=== PATIENT | female | born 1990 | race Caucasian/White ===

== ENCOUNTER → 2017-02-13 | Outpatient (CLI) | payer BC, OTHER ==
[~2017-02-13] MED LIST: ACET50TA PO; ANUS2.5C2 PR; DOCU10ELUD PO; IBUP-1114 PO; IBUP80TA PO; MOM30SS PO; PERC5TAB12 PO; PRENTAB66 PO
[2017-02-13 18:50] LABS: THYROXINE (T4) 7.3 UG/DL (4.5-12.0)
== END ==
LOC: M SMT 13:56
PROVIDERS: ATTEND Advanced Practice Midwife
DX: F32.89 Other specified depressive episodes (principal)

== ENCOUNTER → 2017-10-04 | Outpatient (CLI) | payer OTHER | LOC: M OUTALCOH 07:44 | DX: F10.10 Alcohol abuse, uncomplicated (principal) ==

== ENCOUNTER → 2017-11-27 | Outpatient (CLI) | payer BC, OTHER | LOC: M RAD 13:56 | DX: I87.2 Venous insufficiency (chronic) (peripheral) (principal); I83.811 Varicose veins of right lower extremity with pain ==

== ENCOUNTER 2018-02-05 05:49 | Day surgery (SDC) | payer BC, OTHER ==
[2018-02-05] MEDS ORDERED: LR 1,000 ML IV ×2 (06:00→08:30)
[2018-02-05 06:58] LABS: CONTROL LINE UCG INT CTR LINE PRESENT; URINE PREG TEST NEGATIVE (NEGATIVE)
[2018-02-05] MEDS ORDERED: ONDANSETRON 4MG/2ML VIAL (J2405) As Ordered (07:45)
[2018-02-05] MEDS ORDERED: fentaNYL 100 MCG/2 ML INJECTION (J3010) As Ordered (07:45)
[2018-02-05] MEDS ORDERED: LIDOCAINE 2% INJ 100 MG/5 ML SDV (FOR ANES.) As Ordered (07:45)
[2018-02-05] MEDS ORDERED: PROPOFOL 200 MG/20 ML VIAL As Ordered (07:45)
[2018-02-05] MEDS ORDERED: MIDAZOLAM INJ 2 MG/2 ML VIAL (J2250) As Ordered (07:45)
[2018-02-05] MEDS ORDERED: dexameTHASONE 4 MG/ML 1ML VIAL (J1100) As Ordered (07:45)
[2018-02-05] MEDS: LIDOCAINE W/EPINEPHRINE 1% 20ML VIAL As Ordered (07:48)
[2018-02-05] MEDS ORDERED: ONDANSETRON 4MG/2ML VIAL (J2405) IV (08:30)
[2018-02-05] MEDS ORDERED: PERCOCET 5MG/325MG TAB PO (08:30)
[2018-02-05] MEDS ORDERED: MORPHINE 10 MG/ML 1ML VIAL (J2270) IV (08:30)
[2018-02-05] MEDS: IBUPROFEN 600 MG TAB PO (08:30)
[2018-02-05] MEDS ORDERED: fentaNYL 100 MCG/2 ML INJECTION (J3010) IV (08:30)
[2018-02-05] MEDS ORDERED: IBUPROFEN 600 MG TAB As Ordered (08:41)
== END 2018-02-05 08:45 | disposition home or self-care (01) ==
LOC: M SDC 05:49
DX: I83.811 Varicose veins of right lower extremity with pain (principal); I87.2 Venous insufficiency (chronic) (peripheral)
CPT/HCPCS: 36475

== ENCOUNTER → 2018-02-20 | Outpatient (CLI) | payer BC, OTHER | LOC: M RAD 11:43 | DX: I82.811 Embolism and thrombosis of superficial veins of right lower extremity (principal) | CPT/HCPCS: 93971 ==

== ENCOUNTER → 2018-06-10 | Outpatient (REF) | payer OTHER ==
[2018-06-10 14:44] LABS: CHLAMYDIA DNA AMPLIFICATION NEGATIVE (NEGATIVE); GC DNA AMPLIFICATION NEGATIVE (NEGATIVE)
== END ==
LOC: M SFHCWAGY 12:57
DX: Z11.3 Encounter for screening for infections with a predominantly sexual mode of transmission (principal); R30.0 Dysuria
CPT/HCPCS: 87086

== ENCOUNTER → 2018-06-10 | Outpatient (REF) | payer OTHER | LOC: M SFHCWAGY 10:34 | DX: Z12.4 Encounter for screening for malignant neoplasm of cervix (principal) ==

== ENCOUNTER → 2018-11-05 | Outpatient (REF) | payer OTHER ==
[~2018-11-05] MED LIST changes: -ACET50TA PO; -DOCU10ELUD PO; +DOCU5LIQ PO; +MAPA500T17 PO; +MAPA500T2 PO
[2018-11-05 17:17] LABS: MONO SCRN NEGATIVE (NEGATIVE)
[2018-11-05 17:26] LABS: BASO % 0.7 % (0.0-1.0); EOS # 0.1 10^3/uL (0.0-0.50); EOS % 1.6 % (0.0-3.0); HEMATOCRIT 40.1 % (36.0-47.0); HEMOGLOBIN 13.5 g/dl (12.0-15.5); LYMPH # 1.4 10^3/uL (1.5-6.5); LYMPH % 31.7 % (24.0-44.0); MEAN CORPUSCULAR HEMOGLOBIN 31.6 pg (27.0-33.0); MEAN CORPUSCULAR HGB CONC 33.7 g/dl (32.0-36.5); MEAN CORPUSCULAR VOLUME 93.9 fl (80.0-96.0); MONO # 0.3 10^3/uL (0.0-0.8); MONO % 6.3 % (0.0-5.0); NEUTROPHILS # 2.5 10^3/uL (1.8-7.7); NEUTROPHILS % 59.2 % (36.0-66.0); PLATELET COUNT, AUTOMATED 164 10^3/uL (150-450); RED BLOOD COUNT 4.27 10^6/uL (4.00-5.40); WHITE BLOOD COUNT 4.3 10^3/uL (4.0-10.0)
[2018-11-05 17:35] LABS: ALT/SGPT 20 U/L (12-78); BILIRUBIN,TOTAL 0.6 MG/DL (0.2-1.0); BLOOD UREA NITROGEN 15 MG/DL (7-18); CALCIUM LEVEL 8.8 MG/DL (8.5-10.1); CARBON DIOXIDE LEVEL 28 MEQ/L (21-32); CHLORIDE LEVEL 106 MEQ/L (98-107); CREATININE FOR GFR 0.82 MG/DL (0.55-1.30); FREE THYROXINE INDEX 2.4 % (1.3-4.8); GLOMERULAR FILTRATION RATE > 60.0 (>60); GLUCOSE, FASTING 87 MG/DL (70-100); POTASSIUM SERUM 4.3 MEQ/L (3.5-5.1); SODIUM LEVEL 139 MEQ/L (136-145); T UPTAKE 32 % (30-39); THYROXINE (T4) 7.5 UG/DL (4.5-12.0); TOTAL 25(OH) VITAMIN D 75.6 NG/ML (30.0-100.0); TOTAL PROTEIN 7.5 GM/DL (6.4-8.2); VITAMIN B12 LEVEL 402 PG/ML (247-911)
== END ==
LOC: M SFHCCLAY 10:39
PROVIDERS: ATTEND Nurse Practitioner Family
DX: R53.83 Other fatigue (principal)

== ENCOUNTER → 2019-08-07 | Outpatient (REF) | payer OTHER | LOC: M SFHCCLAY 15:58 | PROVIDERS: ATTEND Nurse Practitioner Family | DX: R68.83 Chills (without fever) (principal) ==

== ENCOUNTER → 2020-08-24 | Outpatient (REF) | payer OTHER ==
[2020-08-24 15:59] LABS: BASO % 0.3 % (0.0-1.0); EOS % 0.2 % (0.0-3.0); HEMATOCRIT 36.9 % (36.0-47.0); HEMOGLOBIN 12.6 g/dl (12.0-15.5); LYMPH # 0.6 10^3/uL (1.5-5.0); LYMPH % 9.9 % (24.0-44.0); MEAN CORPUSCULAR HEMOGLOBIN 32.1 pg (27.0-33.0); MEAN CORPUSCULAR HGB CONC 34.1 g/dl (32.0-36.5); MEAN CORPUSCULAR VOLUME 94.1 fl (80.0-96.0); MONO # 0.2 10^3/uL (0.0-0.8); MONO % 3.3 % (2.0-8.0); NEUTROPHILS # 5.3 10^3/uL (1.5-8.5); NEUTROPHILS % 85.6 % (36.0-66.0); PLATELET COUNT, AUTOMATED 208 10^3/uL (150-450); RED BLOOD COUNT 3.92 10^6/uL (4.00-5.40); WHITE BLOOD COUNT 6.1 10^3/uL (4.0-10.0)
[2020-08-24 16:35] LABS: FREE T4 1.5 NG/DL (0.76-1.46); THYROID STIMULATING HORMONE 0.688 uIU/ML (0.358-3.740)
== END ==
LOC: M PLALAB 11:45
PROVIDERS: ATTEND Nurse Practitioner Women's Health
DX: L65.9 Nonscarring hair loss, unspecified (principal); N93.9 Abnormal uterine and vaginal bleeding, unspecified; N92.0 Excessive and frequent menstruation with regular cycle

== ENCOUNTER → 2021-01-06 | Outpatient (REF) | payer OTHER ==
[2021-01-06 21:39] LABS: GC DNA AMPLIFICATION NEGATIVE (NEGATIVE)
== END ==
LOC: M SFHCWAGY 17:21
PROVIDERS: ATTEND Nurse Practitioner Women's Health
DX: Z11.3 Encounter for screening for infections with a predominantly sexual mode of transmission (principal)

== ENCOUNTER → 2021-04-22 | Outpatient (REF) | payer OTHER ==
[2021-04-22 19:14] LABS: GC DNA AMPLIFICATION NEGATIVE (NEGATIVE)
== END ==
LOC: M SFHCWAGY 16:53
PROVIDERS: ATTEND Obstetrics & Gynecology
DX: Z20.2 Contact with and (suspected) exposure to infections with a predominantly sexual mode of transmission (principal)

== ENCOUNTER → 2021-04-27 | Outpatient (CLI) | payer BC, OTHER ==
[2021-04-27 13:34] LABS: HEPATITIS B CORE ANTIBODY IGM NEGATIVE (NEGATIVE); HEPATITIS B SURFACE ANTIGEN NEGATIVE (NEGATIVE); HEPATITIS C VIRUS ABY INDEX < 0.0 INDEX (<0.8); HIV 1&2 SCREEN CENTAUR NEGATIVE (NEGATIVE)
== END ==
LOC: M PLALAB 10:14
PROVIDERS: ATTEND Obstetrics & Gynecology
DX: Z20.2 Contact with and (suspected) exposure to infections with a predominantly sexual mode of transmission (principal)

== ENCOUNTER → 2021-09-08 | Outpatient (REF) | payer OTHER | LOC: M PLALAB 11:38 | PROVIDERS: ATTEND Advanced Practice Midwife | DX: N89.8 Other specified noninflammatory disorders of vagina (principal); N76.0 Acute vaginitis; Z53.9 Procedure and treatment not carried out, unspecified reason ==

== ENCOUNTER → 2024-02-22 | Outpatient (CLI) | payer BC | LOC: M SLEEP HO 11:11 | PROVIDERS: ATTEND Nurse Practitioner Family | DX: R40.0 Somnolence (principal); R06.83 Snoring ==

== ENCOUNTER → 2024-05-23 | Outpatient (CLI) | payer BC ==
[2024-05-23 10:33] LABS: HEMOGLOBIN 12.7 g/dl (12.0-15.5); MEAN CORPUSCULAR HEMOGLOBIN 32.4 pg (27.0-33.0); MEAN CORPUSCULAR HGB CONC 35.3 g/dl (32.0-36.5); MEAN CORPUSCULAR VOLUME 91.8 fl (80.0-96.0); PLATELET COUNT, AUTOMATED 164 10^3/uL (150-450); RED BLOOD COUNT 3.92 10^6/uL (4.00-5.40); WHITE BLOOD COUNT 5.8 10^3/uL (4.0-10.0)
[2024-05-23 11:30] LABS: HIV 1&2 SCREEN NEGATIVE (NEGATIVE)
[2024-05-23 11:38] LABS: HEPATITIS C VIRUS ABY INDEX 0.04 INDEX (<0.8)
[2024-05-23 12:54] LABS: GC DNA AMPLIFICATION NEGATIVE (NEGATIVE)
== END ==
LOC: M PLALAB 08:53
PROVIDERS: ATTEND Specialist
DX: Z34.80 Encounter for supervision of other normal pregnancy, unspecified trimester (principal); Z3A.00 Weeks of gestation of pregnancy not specified

== ENCOUNTER → 2024-07-23 | Outpatient (CLI) | payer BC | LOC: M RAD 06:43 | PROVIDERS: ATTEND Specialist | DX: Z34.82 Encounter for supervision of other normal pregnancy, second trimester (principal); Z3A.21 21 weeks gestation of pregnancy ==

== ENCOUNTER → 2024-08-28 | Outpatient (CLI) | payer BC ==
[2024-08-28 10:08] LABS: HEMOGLOBIN 10.6 g/dl (12.0-15.5); MEAN CORPUSCULAR HEMOGLOBIN 31.5 pg (27.0-33.0); MEAN CORPUSCULAR HGB CONC 33.1 g/dl (32.0-36.5); PLATELET COUNT, AUTOMATED 162 10^3/uL (150-450); RED BLOOD COUNT 3.37 10^6/uL (4.00-5.40); WHITE BLOOD COUNT 5.4 10^3/uL (4.0-10.0)
[2024-08-28 10:29] LABS: GLUCOSE CHALLENGE TEST 1 HOUR 119 MG/DL (LESS THAN 140)
[2024-08-28 11:05] LABS: HIV 1&2 SCREEN NEGATIVE (NEGATIVE)
[2024-08-28 11:13] LABS: HEPATITIS C VIRUS ABY INDEX 0.13 INDEX (<0.8)
[2024-08-28 11:27] LABS: Trichomonas vaginalis (AMP) NOT DETECTED (NEGATIVE)
[2024-08-28 11:51] LABS: GC DNA AMPLIFICATION NEGATIVE (NEGATIVE)
== END ==
LOC: M PLALAB 07:48
PROVIDERS: ATTEND Specialist
DX: Z34.82 Encounter for supervision of other normal pregnancy, second trimester (principal)
CPT/HCPCS: 36415; 82950; 85027; 86780; 86803; 86850; 86900; 86901; 87389; 87661; 87810; 87850; J2790

== ENCOUNTER → 2024-11-11 | Outpatient (REF) | payer BC | LOC: M SFHCWAGY 13:06 | PROVIDERS: ATTEND Specialist | DX: Z34.83 Encounter for supervision of other normal pregnancy, third trimester (principal) ==